=== PATIENT | male | born 1990 | race Caucasian/White ===

== ENCOUNTER 2016-03-03 16:15 | Emergency (ER) | payer OTHER ==
--- NOTE | 2016-03-03 17:15 | EDDOCDS ---
Physician Documentation [facility] Name: Chalino Cortes Age: 25 yrs Sex: Male : 1990 Arrival Date: 03/03/2016 Time: 16:15 Bed I10 23 Private MD: NO PRIMARY PHYSICIAN, . Disposition: 03/03/16 17:09 Discharged to Home/Self Care. Impression: Jaw pain. - Condition is Stable. - Discharge Instructions: Dental Pain. - Prescriptions for [place] 5- 325 mg Oral Tablet - take 1 tablet by ORAL route every 6 hours As needed MDD: 4 tabs; 20 tablet. - Medication Reconciliation, Local Pharmacy Hours form. - Follow up: Your, Dentist; When: As soon as possible; Reason: Continuance of care. - Problem is an ongoing problem. - Symptoms are unchanged. Historical: - Allergies: No known drug Allergies; - Home Meds: 1. paliperidone 3 mg Oral tr24 once daily 2. clonidine HCl 0.1 mg Oral tab once daily 3. Fluoxetine 30 mg Oral once daily - PMHx: Depression; Hypertension; - PSHx: tonsil abscess drainage; polyp removal from colon; - Social history: Smoking status: Patient states former smoker of tobacco. No barriers to communication noted, The patient speaks fluent Albanian. - Family history: Not pertinent. - : The pt / caregiver states he / she is not on anticoagulants. Home medication list is obtained from the patient, [employer] import data. - Exposure Risk Screening:: None identified. Vital Signs: 03/03 16:16 BP 157 / 71; Pulse 75; Resp 16; Temp 97.3; Pulse Ox 100% ; Weight 149.69 kg / 330.01 cmb lbs; Height 6 ft. 0 in. (182.88 cm); Pain 8/10; 16:16 Body Mass Index 44.76 (149.69 kg, 182.88 cm) cmb Signatures: Julianna Samson, RN RN Shawn Hahn FNP FNP ke Robie, Kathleen,RN RN kr3 MTDD
--- NOTE | 2016-03-03 17:15 | EDDOCDS ---
"Nurse's Notes [facility] Name: Chalino Cortes Age: 25 yrs Sex: Male : 1990 Arrival Date: 03/03/2016 Time: 16:15 Bed I10 23 Private MD: NO PRIMARY PHYSICIAN, . Diagnosis: Jaw pain Presentation: 03/03 16:26 Presenting complaint: Patient states: he has had a toothache for a week - has been to a [facility] and can't write prescriptions - has an appointment with an oral surgeon on Monday - went to Urgent Care and they told him they do not do pain management. Hasn't been able to eat or sleep due to the pain. Thinks they will pull the tooth on Monday. Adult Sepsis Screening: The patient does not have new or worsening altered mentation. Patient's respiratory rate is less than 22. Systolic blood pressure is greater than 100. Patient has a qSOFA score of 0- Negative Sepsis Screen. Suicide/Homicide risk assessment- the patient denies having any suicidal and/or homicidal ideations and does not present with any other emotional, behavioral or mental health complaints. Status: Patient is not a youth services librarian or dependent. Transition of care: patient was not received from another setting of care. 16:26 Acuity: RIC Level 5 kcs 16:26 Method Of Arrival: Walkin/Carried/Asstd kcs Triage Assessment: 16:29 General: Appears obese, uncomfortable, well developed, well nourished, well groomed, kcs Behavior is cooperative, pleasant. Pain: Location: right lower jaw Pain currently is 8 out of 10 on a pain scale. HIV screening NA for this visit Offered previously. Neurological: Level of Consciousness is awake, alert. Respiratory: Airway is patent Respiratory effort is even, unlabored, Respiratory pattern is regular, symmetrical. Derm: Skin is intact, is healthy with good turgor, Skin is dry, Skin is normal. Historical: - Allergies: No known drug Allergies; - Home Meds: 1. paliperidone 3 mg Oral tr24 once daily 2. clonidine HCl 0.1 mg Oral tab once daily 3. Fluoxetine 30 mg Oral once daily - PMHx: Depression; Hypertension; - PSHx: tonsil abscess drainage; polyp removal from colon; - Social history: Smoking status: Patient states former smoker of tobacco. No barriers to communication noted, The patient speaks fluent Icelandic. - Family history: Not pertinent. - : The pt / caregiver states he / she is not on anticoagulants. Home medication list is obtained from the patient, [employer] import data. - Exposure Risk Screening:: None identified. Screenin:12 Screening information is obtained from the patient. Fall risk: No risks identified. kr3 Assistance ADL's: requires no assistance with activities of daily living. Abuse/DV Screen: The patient / caregiver reports he/she is: not in a situation that causes fear, pain or injury. Nutritional screening: No deficits noted. Advance Directives: Currently, there is no health care proxy. home support is adequate. Assessment: 17:13 General: Appears uncomfortable. EENT: Reports right upper dental pain. Respiratory: kr3 Respiratory effort is even, unlabored. Derm: Skin is normal. Vital Signs: 16:16 BP 157 / 71; Pulse 75; Resp 16; Temp 97.3; Pulse Ox 100% ; Weight 149.69 kg; Height 6 cmb ft. 0 in. (182.88 cm); Pain 8/10; 16:16 Body Mass Index 44.76 (149.69 kg, 182.88 cm) cmb Vitals: 16:16 Log In Time: March 03, 2016 at 16:15. cmb ED Course: 16:16 Patient visited by Lali Wei. cmb 16:16 NO PRIMARY PHYSICIAN, . is Private Physician. cmb 16:16 Patient moved to Waiting cmb 16:17 Patient moved to Pre RCE cmb 16:28 Triage Initiated kcs 16:42 Patient moved to I10 / 23 mk4 16:43 [facility] ke 16:43 Patient visited by Shawn Singh FNP. ke 16:43 Patient visited by Shawn Singh FNP. ke 17:08 Your, Dentist is Referral Physician. ke 17:13 No IV's were initiated during this patient's visit. No procedures done that require kr3 assistance. 17:14 The patient / caregiver is instructed regarding the plan of care and ED course. Patient kr3 has correct armband on for positive identification. Order Results: There are currently no results for this order. Outcome: 17:09 Discharge ordered by Provider. ke 17:13 Discharge Assessment: patient administered narcotics - no. The following High Risk kr3 Discharge criteria are identified: None. Discharged to home ambulatory. Condition: stable. Discharge instructions given to patient, Instructed on discharge instructions, follow up and referral plans. medication usage, no driving heavy equipment, no drinking with medication, Demonstrated understanding of instructions, medications, Pt was receptive of discharge instructions/ teaching. Prescriptions given X 2. No special radiology studies were completed. Property sent home with patient. 17:14 Patient left the ED. kr3 Signatures: Julianna Samson, RN RN Shawn Hahn FNP SPEEDER HAND Mercy Dunlap RN RN kr3 Lali Wei Margaret RN RN mk4 MTDElen"
--- NOTE | 2016-03-05 18:14 | EDDOCDS ---
Physician Documentation [facility] Name: Chalino Cortes Age: 25 yrs Sex: Male : 1990 Arrival Date: 03/03/2016 Time: 16:15 Bed I10 / 23 Private MD: NO PRIMARY PHYSICIAN, . Disposition: 03/03/16 17:09 Discharged to Home/Self Care. Impression: Jaw pain. - Condition is Stable. - Discharge Instructions: Dental Pain. - Prescriptions for [place] 5- 325 mg Oral Tablet - take 1 tablet by ORAL route every 6 hours As needed MDD: 4 tabs; 20 tablet. - Medication Reconciliation, Local Pharmacy Hours form. - Follow up: Your, Dentist; When: As soon as possible; Reason: Continuance of care. - Problem is an ongoing problem. - Symptoms are unchanged. Historical: - Allergies: No known drug Allergies; - Home Meds: 1. paliperidone 3 mg Oral tr24 once daily 2. clonidine HCl 0.1 mg Oral tab once daily 3. Fluoxetine 30 mg Oral once daily - PMHx: Depression; Hypertension; - PSHx: tonsil abscess drainage; polyp removal from colon; - Social history: Smoking status: Patient states former smoker of tobacco. No barriers to communication noted, The patient speaks fluent Irish. - Family history: Not pertinent. - : The pt / caregiver states he / she is not on anticoagulants. Home medication list is obtained from the patient, [employer] import data. - Exposure Risk Screening:: None identified. Vital Signs: 03/03 16:16 BP 157 / 71; Pulse 75; Resp 16; Temp 97.3; Pulse Ox 100% ; Weight 149.69 kg / 330.01 cmb lbs; Height 6 ft. 0 in. (182.88 cm); Pain 8/10; 16:16 Body Mass Index 44.76 (149.69 kg, 182.88 cm) cmb MDM: 17:36 [facility] Payment Agreement was scanned into [employer] and attached to record. jp5 17:36 Financial registration complete. jp5 03/04 10:18 T-Sheet-- Draft Copy was scanned into [employer] and attached to record. gb Signatures: Julianna Samson RN RN Lisa Barnes, Reg Reg gb Shawn Singh, BARTENDER SERVER BARTENDER SERVERMercy Shea,RN RN kr3 Dolly Fowler jp5 The chart was reviewed and I authenticate all verbal orders and agree with the evaluation and treatment provided.Attachments: 03/03 17:36 [facility] Payment Agreement jp5 03/04 10:18 T-Sheet-- Draft Copy gb Chart Complete MTDD
--- NOTE | 2016-03-05 18:15 | EDDOCDS ---
Nurse's Notes [facility] Name: Chalino Cortes Age: 25 yrs Sex: Male : 1990 Arrival Date: 03/03/2016 Time: 16:15 Bed I10 23 Private MD: NO PRIMARY PHYSICIAN, . Diagnosis: Jaw pain Presentation: 03/03 16:26 Presenting complaint: Patient states: he has had a toothache for a week - has been to a [facility] and can't write prescriptions - has an appointment with an oral surgeon on Monday - went to Urgent Care and they told him they do not do pain management. Hasn't been able to eat or sleep due to the pain. Thinks they will pull the tooth on Monday. Adult Sepsis Screening: The patient does not have new or worsening altered mentation. Patient's respiratory rate is less than 22. Systolic blood pressure is greater than 100. Patient has a qSOFA score of 0- Negative Sepsis Screen. Suicide/Homicide risk assessment- the patient denies having any suicidal and/or homicidal ideations and does not present with any other emotional, behavioral or mental health complaints. Status: Patient is not a family services specialist or dependent. Transition of care: patient was not received from another setting of care. 16:26 Acuity: RIC Level 5 kcs 16:26 Method Of Arrival: Walkin/Carried/Asstd kcs Triage Assessment: 16:29 General: Appears obese, uncomfortable, well developed, well nourished, well groomed, kcs Behavior is cooperative, pleasant. Pain: Location: right lower jaw Pain currently is 8 out of 10 on a pain scale. HIV screening NA for this visit Offered previously. Neurological: Level of Consciousness is awake, alert. Respiratory: Airway is patent Respiratory effort is even, unlabored, Respiratory pattern is regular, symmetrical. Derm: Skin is intact, is healthy with good turgor, Skin is dry, Skin is normal. Historical: - Allergies: No known drug Allergies; - Home Meds: 1. paliperidone 3 mg Oral tr24 once daily 2. clonidine HCl 0.1 mg Oral tab once daily 3. Fluoxetine 30 mg Oral once daily - PMHx: Depression; Hypertension; - PSHx: tonsil abscess drainage; polyp removal from colon; - Social history: Smoking status: Patient states former smoker of tobacco. No barriers to communication noted, The patient speaks fluent Guinean. - Family history: Not pertinent. - : The pt / caregiver states he / she is not on anticoagulants. Home medication list is obtained from the patient, [employer] import data. - Exposure Risk Screening:: None identified. Screenin:12 Screening information is obtained from the patient. Fall risk: No risks identified. kr3 Assistance ADL's: requires no assistance with activities of daily living. Abuse/DV Screen: The patient / caregiver reports he/she is: not in a situation that causes fear, pain or injury. Nutritional screening: No deficits noted. Advance Directives: Currently, there is no health care proxy. home support is adequate. Assessment: 17:13 General: Appears uncomfortable. EENT: Reports right upper dental pain. Respiratory: kr3 Respiratory effort is even, unlabored. Derm: Skin is normal. Vital Signs: 16:16 BP 157 / 71; Pulse 75; Resp 16; Temp 97.3; Pulse Ox 100% ; Weight 149.69 kg; Height 6 cmb ft. 0 in. (182.88 cm); Pain 8/10; 16:16 Body Mass Index 44.76 (149.69 kg, 182.88 cm) cmb Vitals: 16:16 Log In Time: March 03, 2016 at 16:15. cmb ED Course: 16:16 Patient visited by Lali Wei. cmb 16:16 NO PRIMARY PHYSICIAN, . is Private Physician. cmb 16:16 Patient moved to Waiting cmb 16:17 Patient moved to Pre RCE cmb 16:28 Triage Initiated kcs 16:42 Patient moved to I10 / 23 mk4 16:43 [facility] ke 16:43 Patient visited by Shawn Singh FNP. ke 16:43 Patient visited by Shawn Singh FNP. ke 17:08 Your, Dentist is Referral Physician. ke 17:13 No IV's were initiated during this patient's visit. No procedures done that require kr3 assistance. 17:14 The patient / caregiver is instructed regarding the plan of care and ED course. Patient lamar3 has correct armband on for positive identification. 17:36 [facility] Payment Agreement was scanned into [employer] and attached to record. jp5 17:42 Patient name changed from Chalino\S\J\S\Cortes\S\ to Chalnio\S\Ferny\S\Cortes. EDMS 03/04 10:18 T-Sheet-- Draft Copy was scanned into [employer] and attached to record. Order Results: There are currently no results for this order. Outcome: 03/03 17:09 Discharge ordered by Provider. carlos 17:13 Discharge Assessment: patient administered narcotics - no. The following High Risk kr3 Discharge criteria are identified: None. Discharged to home ambulatory. Condition: stable. Discharge instructions given to patient, Instructed on discharge instructions, follow up and referral plans. medication usage, no driving heavy equipment, no drinking with medication, Demonstrated understanding of instructions, medications, Pt was receptive of discharge instructions/ teaching. Prescriptions given X 2. No special radiology studies were completed. Property sent home with patient. 17:14 Patient left the ED. kr3 Signatures: Dispatcher [employer] EDMS Julianna Samson, RN RN Lisa Barnes, Reg Reg Shawn Craft, MACHINE LEATHER TRIMMER MACHINE LEATHER TRIMMER Mercy Dunlap,RN RN kr3 Lali Wei Margaret, RN RN viiv4 Dolly Fowler jp5 Chart Complete MTDElen
--- NOTE | 2016-03-05 18:15 | EDDOCDS ---
Physician Documentation [facility] Name: Chalino Cortes Age: 25 yrs Sex: Male : 1990 Arrival Date: 03/03/2016 Time: 16:15 Bed I10 / 23 Private MD: NO PRIMARY PHYSICIAN, . Disposition: 03/03/16 17:09 Discharged to Home/Self Care. Impression: Jaw pain. - Condition is Stable. - Discharge Instructions: Dental Pain. - Prescriptions for [place] 5- 325 mg Oral Tablet - take 1 tablet by ORAL route every 6 hours As needed MDD: 4 tabs; 20 tablet. - Medication Reconciliation, Local Pharmacy Hours form. - Follow up: Your, Dentist; When: As soon as possible; Reason: Continuance of care. - Problem is an ongoing problem. - Symptoms are unchanged. Historical: - Allergies: No known drug Allergies; - Home Meds: 1. paliperidone 3 mg Oral tr24 once daily 2. clonidine HCl 0.1 mg Oral tab once daily 3. Fluoxetine 30 mg Oral once daily - PMHx: Depression; Hypertension; - PSHx: tonsil abscess drainage; polyp removal from colon; - Social history: Smoking status: Patient states former smoker of tobacco. No barriers to communication noted, The patient speaks fluent Arabic. - Family history: Not pertinent. - : The pt / caregiver states he / she is not on anticoagulants. Home medication list is obtained from the patient, [employer] import data. - Exposure Risk Screening:: None identified. Vital Signs: 03/03 16:16 BP 157 / 71; Pulse 75; Resp 16; Temp 97.3; Pulse Ox 100% ; Weight 149.69 kg / 330.01 cmb lbs; Height 6 ft. 0 in. (182.88 cm); Pain 8/10; 16:16 Body Mass Index 44.76 (149.69 kg, 182.88 cm) cmb MDM: 17:36 [facility] Payment Agreement was scanned into [employer] and attached to record. jp5 17:36 Financial registration complete. jp5 03/04 10:18 T-Sheet-- Draft Copy was scanned into [employer] and attached to record. gb Signatures: Julianna Samson RN RN Lisa Barnes, Reg Reg gb Shawn Singh, DIGITAL MEDIA SALES CONSULTANT DIGITAL MEDIA SALES CONSULTANTMercy Shea,RN RN kr3 Dolly Fowler jp5 The chart was reviewed and I authenticate all verbal orders and agree with the evaluation and treatment provided.Attachments: 03/03 17:36 [facility] Payment Agreement jp5 03/04 10:18 T-Sheet-- Draft Copy gb Chart Complete MTDD
== END 2016-03-03 17:14 | disposition home or self-care (01) ==
LOC: M ED 16:15
DX: K08.89 Other specified disorders of teeth and supporting structures (principal); I10 Essential (primary) hypertension; F32.9 Major depressive disorder, single episode, unspecified; Z87.891 Personal history of nicotine dependence

== ENCOUNTER 2017-03-29 19:30 | Emergency (ER) | payer OTHER ==
[2017-03-29 23:35] LABS: BASO % 0.4 % (0.0-1.0); EOS # 0.1 10^3/uL (0.0-0.50); EOS % 0.9 % (0.0-3.0); HEMATOCRIT 43.1 % (42.0-52.0); IMMATURE GRANULOCYTE % 0.6 % (0-3.0); LYMPH % 37.1 % (24.0-44.0); MEAN CORPUSCULAR HEMOGLOBIN 28.7 pg (27.0-33.0); MEAN CORPUSCULAR HGB CONC 34.8 g/dl (32.0-36.5); MEAN CORPUSCULAR VOLUME 82.4 fl (80.0-96.0); MONO # 0.6 10^3/uL (0.0-0.8); MONO % 7.9 % (0.0-5.0); NEUTROPHILS # 4.2 10^3/uL (1.8-7.7); NEUTROPHILS % 53.1 % (36.0-66.0); PLATELET COUNT, AUTOMATED 144 10^3/uL (150-450); RED BLOOD COUNT 5.23 10^6/uL (4.30-6.10); RED CELL DISTRIBUTION WIDTH 14.3 % (11.5-14.5)
[2017-03-29 23:50] LABS: ANION GAP 8 MEQ/L (8-16); BLOOD UREA NITROGEN 13 MG/DL (7-18); CALCIUM LEVEL 8.7 MG/DL (8.5-10.1); CARBON DIOXIDE LEVEL 28 MEQ/L (21-32); CHLORIDE LEVEL 105 MEQ/L (98-107); CREATININE FOR GFR 0.99 MG/DL (0.70-1.30); GLOMERULAR FILTRATION RATE > 60.0 (>60); GLUCOSE, FASTING 97 MG/DL (70-100); POTASSIUM SERUM 3.8 MEQ/L (3.5-5.1); SODIUM LEVEL 141 MEQ/L (136-145)
== END 2017-03-30 00:18 | disposition home or self-care (01) ==
LOC: M ED 03-30 00:18
DX: K92.2 Gastrointestinal hemorrhage, unspecified (principal); K92.1 Melena; K21.9 Gastro-esophageal reflux disease without esophagitis; F33.9 Major depressive disorder, recurrent, unspecified; F43.10 Post-traumatic stress disorder, unspecified; F41.9 Anxiety disorder, unspecified; E66.8 Other obesity; Z87.891 Personal history of nicotine dependence
CPT/HCPCS: 80048

== ENCOUNTER 2017-04-11 10:42 | Day surgery (SDC) | payer OTHER ==
[~2017-04-11 10:42] MED LIST: fentaNYL 100 MCG/2 ML INJECTION (J3010) As Ordered
[2017-04-11] MEDS ORDERED: PROPOFOL 200 MG/20 ML VIAL As Ordered ×3 (12:33→13:08)
[2017-04-11] MEDS ORDERED: LIDOCAINE 2% INJ 100 MG/5 ML SDV (FOR ANES.) As Ordered (12:33)
[2017-04-11] MEDS: NS 1,000 ML IV (12:36)
== END 2017-04-11 13:50 | disposition home or self-care (01) ==
LOC: M OPP 10:42
DX: D12.3 Benign neoplasm of transverse colon (principal); K64.0 First degree hemorrhoids; K62.5 Hemorrhage of anus and rectum; K21.9 Gastro-esophageal reflux disease without esophagitis; F41.9 Anxiety disorder, unspecified; Z79.899 Other long term (current) drug therapy; Z87.891 Personal history of nicotine dependence; Z86.010 Personal history of colon polyps
CPT/HCPCS: 45380

== ENCOUNTER 2018-07-17 00:40 | Emergency (ER) | payer MEDICAID, OTHER ==
[~2018-07-17] VITALS: Ht 190.5 cm; Wt 152.3 kg
[2018-07-17 00:40] VITALS: BP 127/77
[~2018-07-17 00:40] MED LIST changes: +FLUO40CA PO; -fentaNYL 100 MCG/2 ML INJECTION (J3010) As Ordered
[2018-07-17] MEDS ORDERED: ZOLO100T (00:58)
[2018-07-17] MEDS ORDERED: HYDR-643 (00:58)
== END 2018-07-17 03:33 | disposition left against medical advice (07) ==
LOC: M ED 00:40
DX: Z53.29 Procedure and treatment not carried out because of patient's decision for other reasons (principal)

== ENCOUNTER 2019-09-06 12:45 | Emergency (ER) | payer MEDICAID, OTHER ==
[~2019-09-06] VITALS: Ht 190.5 cm; Wt 165.6 kg
[~2019-09-06 12:45] MED LIST changes: +HYDR-643; +ZOLO100T
[2019-09-06] MEDS ORDERED: MELO15TA28 PO (12:51)
[2019-09-06] MEDS ORDERED: BUPR150T3 PO (12:51)
[2019-09-06] MEDS ORDERED: BUSP15TA47 PO (12:51)
[2019-09-06 14:08] LABS: BASO # 0.1 10^3/uL (0.0-0.2); BASO % 0.6 % (0.0-1.0); EOS # 0.2 10^3/uL (0.0-0.5); EOS % 1.8 % (0.0-3.0); HEMATOCRIT 45.4 % (42.0-52.0); HEMOGLOBIN 15.7 g/dl (13.5-17.5); LYMPH # 1.7 10^3/uL (1.5-5.0); LYMPH % 15.9 % (24.0-44.0); MEAN CORPUSCULAR HGB CONC 34.6 g/dl (32.0-36.5); MEAN CORPUSCULAR VOLUME 83.8 fl (80.0-96.0); MONO # 0.7 10^3/uL (0.0-0.8); MONO % 6.4 % (0.0-5.0); NEUTROPHILS % 74.4 % (36.0-66.0); PLATELET COUNT, AUTOMATED 158 10^3/uL (150-450); RED BLOOD COUNT 5.42 10^6/uL (4.30-6.10); WHITE BLOOD COUNT 10.8 10^3/uL (4.0-10.0)
[2019-09-06 14:28] LABS: BLOOD UREA NITROGEN 10 MG/DL (7-18); C REACTIVE PROTEIN QUANTITATIV 1.78 MG/DL (0.00-0.30); CALCIUM LEVEL 8.7 MG/DL (8.5-10.1); CARBON DIOXIDE LEVEL 24 MEQ/L (21-32); CHLORIDE LEVEL 107 MEQ/L (98-107); CREATININE FOR GFR 0.87 MG/DL (0.70-1.30); GLOMERULAR FILTRATION RATE > 60.0 (>60); GLUCOSE, FASTING 117 MG/DL (70-100); POTASSIUM SERUM 3.7 MEQ/L (3.5-5.1); SODIUM LEVEL 139 MEQ/L (136-145)
[2019-09-06 14:41] LABS: ERYTHROCYTE SEDIMENTATION RATE 3 mm/hr (0-15)
[2019-09-06] MEDS ORDERED: cefTRIAXone SOD 1 GM in D5W MINI-BAG PLUS 50 ML IV ONE (15:00)
--- NOTE | 2019-09-06 15:33 | REP ---
ULTRASOUND RIGHT THIGH SOFT TISSUES: Real-time sonographic evaluation of the right thigh soft tissues performed at the site of a palpable tender red lump. The underlying soft tissues demonstrate mild edematous change. No discrete cystic or solid mass is seen and there is no fluid collection. Electronically Signed by Wu Resendiz MD 09/09/2019 09:44 A
[2019-09-06] MEDS ORDERED: KEFL500C17 PO (15:53)
[2019-09-06 16:00] VITALS: BP 128/74
== END 2019-09-06 16:12 | disposition home or self-care (01) ==
LOC: M ED 12:45
DX: L03.115 Cellulitis of right lower limb (principal); F41.9 Anxiety disorder, unspecified; F33.9 Major depressive disorder, recurrent, unspecified; F17.200 Nicotine dependence, unspecified, uncomplicated; Z79.899 Other long term (current) drug therapy; Z87.2 Personal history of diseases of the skin and subcutaneous tissue; Z86.010 Personal history of colon polyps
CPT/HCPCS: 76882; 80048; 85025; 85652; 86140; 96365; 99284; J0696

== ENCOUNTER 2020-01-05 06:32 | Emergency (ER) | payer OTHER ==
[~2020-01-05] VITALS: Ht 193 cm; Wt 170.0 kg
[~2020-01-05 06:32] MED LIST changes: +BUPR150T3 PO; +BUSP15TA47 PO; +KEFL500C17 PO; +MELO15TA28 PO
[2020-01-05] MEDS ORDERED: OMEP40CA97 PO (06:45)
[2020-01-05] MEDS ORDERED: KETOROLAC 30 MG/ML 1ML VIAL IV ONE (07:15)
[2020-01-05] MEDS ORDERED: NS 1,000 ML IV ONE (07:15)
[2020-01-05 07:25] LABS: BASO # 0.1 10^3/uL (0.0-0.2); BASO % 0.6 % (0.0-1.0); EOS # 0.2 10^3/uL (0.0-0.5); EOS % 2.7 % (0.0-3.0); HEMATOCRIT 44.9 % (42.0-52.0); HEMOGLOBIN 15.4 g/dl (13.5-17.5); LYMPH # 2.5 10^3/uL (1.5-5.0); LYMPH % 27.8 % (24.0-44.0); MEAN CORPUSCULAR HEMOGLOBIN 28.8 pg (27.0-33.0); MEAN CORPUSCULAR HGB CONC 34.3 g/dl (32.0-36.5); MEAN CORPUSCULAR VOLUME 83.9 fl (80.0-96.0); MONO # 0.7 10^3/uL (0.0-0.8); MONO % 7.9 % (0.0-5.0); NEUTROPHILS # 5.3 10^3/uL (1.5-8.5); NEUTROPHILS % 59.4 % (36.0-66.0); PLATELET COUNT, AUTOMATED 196 10^3/uL (150-450); RED BLOOD COUNT 5.35 10^6/uL (4.30-6.10); WHITE BLOOD COUNT 8.9 10^3/uL (4.0-10.0)
--- NOTE | 2020-01-05 08:09 | REPVR ---
PROCEDURE INFORMATION: Exam: CT Abdomen And Pelvis Without Contrast Exam date and time: 01/05/2020 7:32 AM Age: 29 years old Clinical indication: Abdominal pain; Flank; Right; Additional info: R flank pain with HX of kidney stones TECHNIQUE: Imaging protocol: Computed tomography of the abdomen and pelvis without contrast. Radiation optimization: All CT scans at this facility use at least one of these dose optimization techniques: automated exposure control; mA and/or kV adjustment per patient size (includes targeted exams where dose is matched to clinical indication); or iterative reconstruction. COMPARISON: CT ABD PELVIS WITH CONTRAST 05/15/2014 12:15 PM FINDINGS: Liver: Fatty infiltration of the liver. Hepatomegaly longitudinally measuring 21.9 cm. Gallbladder and bile ducts: Normal. No calcified stones. No ductal dilation. Pancreas: Normal. No ductal dilation. Spleen: Splenomegaly longitudinal diameter 18.4 cm Adrenal glands: Normal. No mass. Kidneys and ureters: No renal or ureteral obstruction. Stomach and bowel: Distal colonic diverticulosis. Appendix: No evidence of appendicitis. Intraperitoneal space: Unremarkable. No free air. No significant fluid collection. Vasculature: Unremarkable. No abdominal aortic aneurysm. Lymph nodes: Bilateral inguinal adenopathy largest on the left with largest lymph node measuring 3.4 cm. Numerous scattered mesenteric abdominal lymph nodes. Urinary bladder: Unremarkable as visualized. Reproductive: Unremarkable as visualized. Bones/joints: Degenerative change of the spine. Compression deformity of T9 age indeterminate was not present on the comparison CT . Soft tissues: Minimal umbilical hernia containing fat. IMPRESSION: 1. Fatty infiltration of the liver with hepatomegaly. 2. Splenomegaly. 3. Colonic diverticulosis. 4. Moderate age indeterminate compression deformity o the the f T9. Electronically signed by: Heather De Paz On 01/05/2020 08:08:24 AM
[2020-01-05 08:18] LABS: ALBUMIN 4.4 GM/DL (3.2-5.2); ALT/SGPT 89 U/L (12-78); BILIRUBIN,DIRECT 0.2 MG/DL (0.0-0.2); BILIRUBIN,TOTAL 0.7 MG/DL (0.2-1.0); BLOOD UREA NITROGEN 12 MG/DL (7-18); CALCIUM LEVEL 8.4 MG/DL (8.5-10.1); CARBON DIOXIDE LEVEL 26 MEQ/L (21-32); CHLORIDE LEVEL 106 MEQ/L (98-107); CREATININE FOR GFR 0.94 MG/DL (0.70-1.30); GLOMERULAR FILTRATION RATE > 60.0 (>60); LIPASE 121 U/L (73-393); POTASSIUM SERUM 4.1 MEQ/L (3.5-5.1); SODIUM LEVEL 138 MEQ/L (136-145); TOTAL PROTEIN 7.2 GM/DL (6.4-8.2)
[2020-01-05 08:23] LABS: GLUCOSE, FASTING 128 MG/DL (70-100)
[2020-01-05 08:44] VITALS: BP 134/74
--- NOTE | 2020-01-06 11:10 | ED PDOC ---
Post-Departure Follow-Up ct abd/p faxed to [facility] for fu Iban Briceno MD Jan 06, 2020 11:10
== END 2020-01-05 08:46 | disposition home or self-care (01) ==
LOC: M ED 06:32
DX: M54.9 Dorsalgia, unspecified (principal); R16.1 Splenomegaly, not elsewhere classified; K76.0 Fatty (change of) liver, not elsewhere classified; K21.9 Gastro-esophageal reflux disease without esophagitis; Z79.899 Other long term (current) drug therapy
CPT/HCPCS: 74176; 80048; 80076; 81001; 83690; 85025; 96361; 96374; 99284; J1885

== ENCOUNTER 2020-08-08 11:08 | Emergency (ER) | payer OTHER ==
[~2020-08-08] VITALS: Ht 193 cm; Wt 169.0 kg
[~2020-08-08 11:08] MED LIST changes: +BUPR150T12 PO; -BUPR150T3 PO; +OMEP40CA4 PO
--- NOTE | 2020-08-08 11:42 | REP ---
INDICATION: CHEST PAIN. COMPARISON: 12/22/2011 FINDINGS: The technique utilized in obtaining the radiograph has magnified the cardiac silhouette and accentuated the interstitial markings. The superior mediastinal structures are midline. The cardiac silhouette is unremarkable in size, shape, and position. The diaphragmatic surfaces of the lungs are regular, and the costophrenic angles are clear. The pulmonary santos are clear. The imaged osseous structures are intact. IMPRESSION: There is no acute cardiopulmonary disease. <Electronically signed by Ad Mena > 08/08/20 [id number]
[2020-08-08 11:47] LABS: BASO # 0.1 10^3/uL (0.0-0.2); BASO % 0.8 % (0.0-1.0); EOS # 0.2 10^3/uL (0.0-0.5); EOS % 2.4 % (0.0-3.0); HEMATOCRIT 43.8 % (42.0-52.0); HEMOGLOBIN 15.1 g/dl (13.5-17.5); LYMPH # 1.9 10^3/uL (1.5-5.0); LYMPH % 24.9 % (24.0-44.0); MEAN CORPUSCULAR HEMOGLOBIN 28.8 pg (27.0-33.0); MEAN CORPUSCULAR HGB CONC 34.5 g/dl (32.0-36.5); MEAN CORPUSCULAR VOLUME 83.6 fl (80.0-96.0); MONO # 0.6 10^3/uL (0.0-0.8); MONO % 8.3 % (2.0-8.0); NEUTROPHILS # 4.7 10^3/uL (1.5-8.5); NEUTROPHILS % 62.3 % (36.0-66.0); PLATELET COUNT, AUTOMATED 151 10^3/uL (150-450); RED BLOOD COUNT 5.24 10^6/uL (4.30-6.10); WHITE BLOOD COUNT 7.6 10^3/uL (4.0-10.0)
[2020-08-08 12:26] LABS: ALBUMIN 4.2 GM/DL (3.2-5.2); ALT/SGPT 80 U/L (12-78); BILIRUBIN,DIRECT 0.1 MG/DL (0.0-0.2); BILIRUBIN,TOTAL 0.5 MG/DL (0.2-1.0); BLOOD UREA NITROGEN 9 MG/DL (7-18); CALCIUM LEVEL 8.8 MG/DL (8.5-10.1); CARBON DIOXIDE LEVEL 26 MEQ/L (21-32); CHLORIDE LEVEL 108 MEQ/L (98-107); CK-MB VALUE MASS < 1.0 NG/ML (<3.6); CPK CREATINE PHOSPHOKINASE 120 U/L (39-308); CREATININE FOR GFR 0.94 MG/DL (0.70-1.30); FREE T4 1.04 NG/DL (0.76-1.46); GLOMERULAR FILTRATION RATE > 60.0 (>60); GLUCOSE, FASTING 115 MG/DL (70-100); LIPASE 104 U/L (73-393); MB/CK RELATIVE INDEX 0.83 (< OR =4); POTASSIUM SERUM 4.1 MEQ/L (3.5-5.1); SODIUM LEVEL 140 MEQ/L (136-145); TOTAL PROTEIN 7.2 GM/DL (6.4-8.2); TROPONIN I < 0.02 NG/ML (< 0.10)
[2020-08-08] MEDS ORDERED: KETOROLAC 30 MG/ML 1ML VIAL IV ONE (15:00)
[2020-08-08 16:13] LABS: CK-MB VALUE MASS < 1.0 NG/ML (<3.6); CPK CREATINE PHOSPHOKINASE 102 U/L (39-308); MB/CK RELATIVE INDEX 0.98 (< OR =4); TROPONIN I < 0.02 NG/ML (< 0.10)
[2020-08-08 17:19] LABS: AMPHETAMINES LEVEL URINE NEGATIVE (NEGATIVE); BARBITURATES URINE NEGATIVE (NEGATIVE); BENZODIAZEPINES URINE NEGATIVE (NEGATIVE); CANNABINOIDS URINE NEGATIVE (NEGATIVE); COCAINE METABOLITE URINE NEGATIVE (NEGATIVE); METHADONE URINE NEGATIVE (NEGATIVE); OPIATES URINE NEGATIVE (NEGATIVE); PHENCYCLIDINE URINE NEGATIVE (NEGATIVE)
[2020-08-08] MEDS ORDERED: KETO10TAB PO (17:30)
[2020-08-08 18:16] VITALS: BP 113/76
--- NOTE | 2020-08-09 14:19 | ECGEPIP ---
[facility] - ED Test Date: 2020-08-08 Pat Name: ALYSON BUSTAMANTE Department: Room: - Gender: Male Blow Up Operator: AURORA : 1990 Requested By: GURPREET Mcconnell Order Number: [id number] Reading MD: Gertrudis Fernandes Measurements Intervals [place] Rate: 85 P: 8 AL: 160 QRS: 53 QRSD: 96 T: 6 QT: 418 QTc: 497 Interpretive Statements Normal sinus rhythm Prolonged QT, clinical correlation No prior Electronically Signed on 08-09-2020 14:19:32 EDT by Gertrudis Fernandes
--- NOTE | 2020-08-09 14:24 | ECGEPIP ---
[facility] - ED Test Date: 2020-08-08 Pat Name: ALYSON BUSTAMANTE Department: Room: - Gender: Male Family Service Caseworker: : 1990 Requested By: GURPREET Mcconnell Order Number: [id number] Reading MD: Gertrudis Fernandes Measurements Intervals [place] Rate: 64 P: 14 IN: 170 QRS: 65 QRSD: 106 T: 15 QT: 446 QTc: 460 Interpretive Statements Normal sinus rhythm with sinus arrhythmia Nonspecific T wave abnormality Prolonged QT, shorter compared 08/08/20 Electronically Signed on 08-09-2020 14:24:06 EDT by Gertrudis Fernandes
== END 2020-08-08 18:20 | disposition home or self-care (01) ==
LOC: M ED 11:08
DX: R07.89 Other chest pain (principal); R11.0 Nausea; K21.9 Gastro-esophageal reflux disease without esophagitis; Z87.442 Personal history of urinary calculi; Z79.899 Other long term (current) drug therapy; F17.210 Nicotine dependence, cigarettes, uncomplicated
CPT/HCPCS: 36415; 71045; 80048; 80076; 80307; 82550; 82553; 83690; 84439; 84443; 85025; 93005; 93041; 94760; 96374; 99285; J1885